=== PATIENT | male | born 1995 | race African-American/Black ===

== ENCOUNTER 2019-01-30 07:17 | Emergency (ER) | payer OTHER ==
[~2019-01-30] VITALS: Ht 180.3 cm; Wt 61.4 kg
--- NOTE | 2019-01-30 08:08 | REP ---
Clinical: Trauma. Technique: AP, lateral, bilateral oblique views of the left ankle. Findings: Lateral swelling consist with inversion injury. No acute fracture or dislocation. Joint spaces and ankle mortise are intact. Impression: Swelling. No acute fracture or dislocation. Electronically Signed by Matty Martinez MD 01/30/2019 07:59 A
[2019-01-30 08:30] VITALS: BP 128/70
== END 2019-01-30 08:40 | disposition home or self-care (01) ==
LOC: M ED 07:17
DX: S93.402A Sprain of unspecified ligament of left ankle, initial encounter (principal); X50.9XXA Other and unspecified overexertion or strenuous movements or postures, initial encounter; Y92.89 Other specified places as the place of occurrence of the external cause; Y93.67 Activity, basketball